=== PATIENT | female | born 1950 | race Two or more races ===

== ENCOUNTER 2020-03-31 10:48 | Emergency (ER) | payer MEDICARE, OTHER ==
[~2020-03-31] VITALS: Ht 162.6 cm; Wt 58.1 kg
[~2020-03-31 10:48] MED LIST: ACETAMINOPHEN-1 EAC1 ORAL; AKTOB1 DROP LEFT EYE; AMITRIPTYLINE25 MG ORAL; CYCLOBENZAPRINE10 MG ORAL; KEFLEX500 MG ORAL; SILVADENE20 GM TP; TRAMADOL HCL50 MG ORAL
[2020-03-31 11:00] VITALS: BP 141/94
--- NOTE | 2020-03-31 11:08 | NUR ---
ED Nurse Note: Pt from home and walked in due to headache that worsened an hour ago. Pt has hx of chronic headaches. Pt denies vomiting or blurring of her vision. AAO x4, ambulates with steady gait. No respiratory distress.
--- NOTE | 2020-03-31 11:12 | Emergency Room Report ---
History of Present Illness General Chief Complaint: Headache Source: Patient Present Illness HPI Patient presents emergency department today complaint of a headache. Headache described as a band headache around her head. She has had a history of multiple episodes of headaches. She has had extensive work-up with multiple visits to the emergency department. Patient has had extensive multiple CT scans in the past. Patient states that she does not want another CT scan. The pain is described more of a gradual onset. It was not a sudden head gastelum pain. Patient denies any neck pain or leg stiffness. Denies any fever nausea vomiting diarrhea chills. Denies any photophobia. This is very typical headache for the patient. She states that when it gets this bad she usually come to the hospital received pain medications and feels better. No other complaints are noted. Patient does admit to be under any stress. Symptoms noted to be moderate to severe. No other modifying factors. No other associated signs and symptoms. No other complaints were noted. Allergies: Coded Allergies: No Known Allergies (Unverified , 02/04/15) COVID-19 Screening Contact w/high risk pt: No Experienced COVID-19 symptoms?: Yes COVID-19 Testing performed [employer]: Yes - one month ago COVID-19 Screening: Negative COVID-19 COVID-19 Testing Source: blood Patient History Past Medical History: migraines Past Surgical History: none Pertinent Family History: none Social History: Denies: smoking, alcohol use, drug use Reviewed Nursing Documentation: PMH: Agreed; PSxH: Agreed Nursing Documentation-PMH Past Medical History: No Stated History Review of Systems All Other Systems: negative except mentioned in HPI Physical Exam Vital Signs Date Time Temp Pulse Resp B/P (MAP) Pulse Ox O2 Delivery O2 Flow Rate FiO2 03/31/20 11:00 98.2 80 14 141/94 94 Room Air Sp02 EP Interpretation: reviewed, normal General Appearance: alert, moderate distress Head: atraumatic Eyes: bilateral eye normal inspection ENT: normal ENT inspection, hearing grossly normal, normal voice Neck: normal inspection, full range of motion, supple, no bony tend Respiratory: normal inspection, lungs clear, normal breath sounds, no respiratory distress, no retraction, no wheezing Cardiovascular #1: regular rate, rhythm, no edema Gastrointestinal: normal inspection, normal bowel sounds, non tender, soft, no guarding, no hernia Genitourinary: no CVA tenderness Musculoskeletal: normal inspection, back normal, normal range of motion Neurologic: alert, responsive, speech normal, normal inspection Psychiatric: normal inspection, judgement/insight normal, anxious Skin: no rash Medical Decision Making Diagnostic Impression: Primary Impression: Chest pain Additional Impression: Headache ER Course Patient presents emergency department today complaint of a headache. Differential considerations include migraine headache, tension headache, stress headache just name a few. Patient's exam is fairly benign patient has had extensive work-up for this therefore patient only wanted pain medication. Patient was given pain infusions fluids with significant provement symptoms. However prior to discharge patient began to develop acute onset of chest discomfort. She described as dull achy worse with deep inspiration over the bilateral chest wall area. Because of this cardiac work-up was initiated. EKG was noted to be negative. Laboratory work-up was also negative. Troponin was normal. Chest x-ray was normal. Given patient's advanced age however I felt the patient would benefit from an observation. And a possible patient admission. Patient however declined to be admitted. Patient understands the risk of being discharged. Patient understands the risk including and permanent disability. Patient states that she will obtain outpatient follow- up. Therefore patient left the hospital AGAINST MEDICAL ADVICE. Patient was stable making decisions. Patient was advised return emergency room if she changes her mind has been admitted. Or to follow-up with primary care physician for stress test. Patient was discharged AMA in stable condition. Labs Test 03/31/20 12:15 White Blood Count 5.9 K/UL (4.8-10.8) Red Blood Count 5.15 M/UL (4.20-5.40) Hemoglobin 10.2 G/DL (12.0-16.0) Hematocrit 33.8 % (37.0-47.0) Mean Corpuscular Volume 66 FL (80-99) Mean Corpuscular Hemoglobin 19.7 PG (27.0-31.0) Mean Corpuscular Hemoglobin Concent 30.0 G/DL (32.0-36.0) Red Cell Distribution Width 14.2 % (11.6-14.8) Platelet Count 170 K/UL (150-450) Mean Platelet Volume 8.3 FL (6.5-10.1) Neutrophils (%) (Auto) 61.8 % (45.0-75.0) Lymphocytes (%) (Auto) 30.0 % (20.0-45.0) Monocytes (%) (Auto) 5.9 % (1.0-10.0) Eosinophils (%) (Auto) 1.3 % (0.0-3.0) Basophils (%) (Auto) 1.0 % (0.0-2.0) Sodium Level 143 MMOL/L (136-145) Potassium Level 3.9 MMOL/L (3.5-5.1) Chloride Level 108 MMOL/L (98-107) Carbon Dioxide Level 28 MMOL/L (21-32) Anion Gap 7 mmol/L (5-15) Blood Urea Nitrogen 14 mg/dL (7-18) Creatinine 0.8 MG/DL (0.55-1.30) Estimat Glomerular Filtration Rate > 60 mL/min (>60) Glucose Level 81 MG/DL (74-106) Calcium Level 7.9 MG/DL (8.5-10.1) Total Bilirubin 0.7 MG/DL (0.2-1.0) Aspartate Amino Transf (AST/SGOT) 41 U/L (15-37) Alanine Aminotransferase (ALT/SGPT) 41 U/L (12-78) Alkaline Phosphatase 87 U/L (46-116) Troponin I 0.000 ng/mL (0.000-0.056) Total Protein 6.0 G/DL (6.4-8.2) Albumin 3.3 G/DL (3.4-5.0) Globulin 2.7 g/dL Albumin/Globulin Ratio 1.2 (1.0-2.7) EKG Diagnostic Results Rate: normal Rhythm: NSR ST Segments: no acute changes Rhythm Strip Diag. Results EP Interpretation: yes Rate: 61 Rhythm: NSR, no PVC's, no ectopy Chest X-Ray Diagnostic Results Chest X-Ray Diagnostic Results : Chest X-Ray Ordered: Yes # of Views/Limited/Complete: 1 View Indication: Chest Pain EP Interpretation: Yes Interpretation: no consolidation, no effusion, no pneumothorax, no acute cardiopulmonary disease Impression: No acute disease Electronically Signed by: Electronically signed by Farzad Johansen MD Last Vital Signs Date Time Temp Pulse Resp B/P (MAP) Pulse Ox O2 Delivery O2 Flow Rate FiO2 03/31/20 11:00 98.2 80 14 141/94 (110) 94 Room Air Status: improved Disposition: AGAINST MEDICAL ADVICE Condition: Stable Scripts Ondansetron (Zofran) 4 Mg Tablet 4 MG ORAL Q6H PRN for Nausea & Vomiting, #15 TAB 0 Refills Prov: Farzda Johansen MD 03/31/20 Ibuprofen* (MOTRIN*) 600 Mg Tablet 600 MG ORAL Q6H PRN for FOR PAIN, #20 TAB 0 Refills Prov: Farzad Johansen MD 03/31/20 Hydrocodone Bit/Acetaminophen 5-325* (NORCO 5-325 TABLET*) 1 Each Tablet 1 TAB ORAL Q4H PRN for FOR PAIN, #12 TAB 0 Refills Prov: Farzad Johansen MD 03/31/20 Farzad Johansen MD Mar 31, 2020 11:12
[2020-03-31] MEDS ORDERED: Ketorolac 30mg Inj IV ONE (11:15)
[2020-03-31] MEDS ORDERED: Morphine Sulfate 4mg/ml Inj (IV USE ONLY) IVP ONE (11:15)
--- NOTE | 2020-03-31 11:45 | NUR ---
ED Nurse Note: Pt complains of CP and side pains on her trunk. Dr Johansen was notified.
--- NOTE | 2020-03-31 12:04 | NUR ---
ED Nurse Note: Collected blood then sent to lab.
[2020-03-31 12:25] LABS: EOSINOPHILS % (AUTO) 1.3 % (0.0-3.0); HEMATOCRIT 33.8 % (37.0-47.0); HEMOGLOBIN 10.2 G/DL (12.0-16.0); MEAN CORPUSCULAR VOLUME 66 FL (80-99); MONOCYTES % (AUTO) 5.9 % (1.0-10.0); NEUTROPHILS % (AUTO) 61.8 % (45.0-75.0); PLATELET COUNT 170 K/UL (150-450); RED BLOOD COUNT 5.15 M/UL (4.20-5.40); RED CELL DISTRIBUTION WIDTH 14.2 % (11.6-14.8); WHITE BLOOD COUNT 5.9 K/UL (4.8-10.8)
[2020-03-31 12:41] LABS: ANION GAP 7 mmol/L (5-15); BLOOD UREA NITROGEN 14 mg/dL (7-18); CALCIUM 7.9 MG/DL (8.5-10.1); CARBON DIOXIDE 28 MMOL/L (21-32); CHLORIDE 108 MMOL/L (98-107); CREATININE 0.8 MG/DL (0.55-1.30); POTASSIUM 3.9 MMOL/L (3.5-5.1); SODIUM 143 MMOL/L (136-145)
[2020-03-31 12:46] LABS: ALANINE AMINOTRANSFERASE 41 U/L (12-78); ALBUMIN 3.3 G/DL (3.4-5.0); ALBUMIN/GLOBULIN RATIO 1.2 (1.0-2.7); ALKALINE PHOSPHATASE 87 U/L (46-116); ASPARTATE AMINO TRANSFERASE 41 U/L (15-37); BILIRUBIN,TOTAL 0.7 MG/DL (0.2-1.0)
[2020-03-31] MEDS ORDERED: ZOFRAN4 MG ORAL (13:04)
[2020-03-31] MEDS ORDERED: IBUPROFEN600 M1 ORAL (13:04)
[2020-03-31] MEDS ORDERED: NORCO 5-325 TA1 EAC1 ORAL (13:04)
[2020-03-31 13:13] VITALS: BP 137/80
--- NOTE | 2020-03-31 13:13 | NUR ---
ER DISCHARGE NOTE: Patient is cleared to be discharged per ERMD, pt is aox4, on room air, with stable vital signs. pt was given dc and prescription instructions, pt was able to verbalize understanding, pt id band and iv site removed without complications. pt is able to ambulate with steady gait. pt took all belongings.
--- NOTE | 2020-03-31 13:32 | Diagnostic Imaging Report ---
Indication: Chest Technique: One view of the chest Comparison: none Findings: Lungs and pleural spaces are clear. Heart size is normal. Impression: No acute process This agrees with the preliminary interpretation provided by the emergency room physician
== END 2020-03-31 13:13 | disposition left against medical advice (07) ==
LOC: EMR 12:00
DX: R51 Headache (principal); R07.9 Chest pain, unspecified
CPT/HCPCS: 36415; 71045; 80053; 84484; 85025; 93005; 96361; 96374; 96375; 99284; J1885; J2270; J2405; J7030